=== PATIENT | male | born 1950 | race Caucasian/White ===

== ENCOUNTER 2016-05-14 14:32 | Outpatient (CLI) | payer MEDICARE, BC ==
[2016-05-14 15:30] LABS: #Basophils 0.1 thou/uL (0.0-0.2); #Eosinphils 0.1 thou/uL (0.0-0.7); #Lymphocytes 1.6 thou/uL (1.20-3.40); #Monocytes 0.5 thou/uL (0.11-0.59); #Neutrophils 6.1 thou/uL (1.40-6.50); %Basophils 1.1 % (0.0-1.0); %Eosinophils 0.8 % (0.0-10.0); Hematocrit 56.7 % (42.0-52.0); Mean Platelet Volume 9.3 fL (7.4-10.4); Red Blood Cell (RBC) Count 6.06 mill/uL (4.70-6.10); White Blood Cell (WBC) Count 8.4 thou/uL (4.8-10.8)
[2016-05-14 15:36] LABS: ALT (SGPT) 40 U/L (0-55); AST (SGOT) 23 U/L (5-34); Alkaline Phosphatase 96 U/L (40-150); Anion Gap 18 mmol/L (10-20); BUN (Urea Nitrogen) 18 mg/dL (8.4-25.7); Bilirubin, Total 0.5 mg/dL (0.2-1.2); Calc. Creatinine Clearance 0 mL/min (70-130); Calcium 9.9 mg/dL (7.8-10.44); Carbon Dioxide 26 mmol/L (23-31); Chloride 94 mmol/L (98-107); Estimated GFR-MDRD 41; Lipase 60 U/L (8-78); Protein, Total 7.9 g/dL (5.8-8.1)
[2016-05-14 18:21] LABS: Hemoglobin A1c 10.3 % (4.0-6.0)
== END 2016-05-14 14:33 | disposition home or self-care (01) ==
LOC: HPCALD 14:32
PROVIDERS: ATTEND Family Medicine
DX: R10.9 Unspecified abdominal pain (principal)
CPT/HCPCS: 36415; 80053; 83036; 83690; 85025

== ENCOUNTER 2016-05-16 07:55 | Outpatient (CLI) | payer MEDICARE, BC ==
--- NOTE | 2016-05-16 21:06 | CT ---
CT ABDOMEN AND PELVIS WITH CONTRAST: Date: 05/16/[address] of the abdomen and pelvis was performed for evaluation of umbilical and abdominal pain in a patient with a prior history of prostate cancer. There is also recent history of diarrhea. Axial s lices were acquired after giving both oral and IV contrast. The amount of IV contrast was restricted to 60 mL due to the patient's GFR. Isovue was used. Axial slices were acquired, then coronal recons tructions were done. There are no prior scans available for comparison. FINDINGS: The lung bases are clear. A small cyst or pneumatocele is seen in the left lower lobe and is of no c oncern. The liver is normal in size, but slightly low in density. There is probably some mild fatty infiltra tion. The gallbladder contained no obvious calcifications. The spleen and pancreas appear normal. Joe th adrenal glands seem hypertrophied, but the left adrenal is more bulbous and I believe it has at l east a 2.3 cm mass in it. The average CT density was 9-12 units, making it very likely that this is an adenoma. The kidneys show no solid mass or hydronephrosis. A few nonobstructing calculi are sugge sted on the left kidney. The aorta shows mild arteriosclerotic change with no aneurysm. The bowel is nondistended. There is no sign of obstruction. There is no maryjane-inflammatory streaking around bowel or thickening of joseph. The only area that was even questionably thickened would be the duodenum and proximal jejunum, and this is an equivocal finding at best. There were no signs of div erticulitis or colitis. No free air or free fluid seen. The patient does have a small fat-filled umbilical hernia immediately superior to the umbilical pino on. No bowel is within it and its neck is rather wide. CT of the pelvis showed no pelvic masses, fluid collections, or adenopathy. No lytic or blastic lesions were seen within the bony pelvis. The vertebra appear intact. There is d egenerative disc disease at several different levels, but is most prominent at L4-L5 and L5-S1. Face t arthritis at these levels is prominent as well. IMPRESSION: 1. Small fat-filled periumbilical hernia. 2. Mild diffuse fatty infiltration of the liver. 3. Nonobstructing left renal calculi. 4. No evidence of colitis or diverticulitis. POS: HOME
== END 2016-05-16 07:56 | disposition home or self-care (01) ==
LOC: BURCT 07:55
PROVIDERS: ATTEND Family Medicine
DX: R10.9 Unspecified abdominal pain (principal); N20.0 Calculus of kidney; K76.0 Fatty (change of) liver, not elsewhere classified
CPT/HCPCS: 74177

== ENCOUNTER 2019-04-13 09:27 | Outpatient (CLI) | payer MEDICARE ==
--- NOTE | 2019-04-13 16:53 | RAD ---
RIGHT KNEE FOUR VIEWS: 04/13/19 No acute fracture was seen. There is medial joint space narrowing and some very small osteophytes. Th ere does appear to be a small bony fragment in the central portion of the joint. This could be from o ld trauma or an old ligamentous injury. MRI would best show any internal derangement of the knee. IMPRESSION: Degenerative changes as noted with possible loose body. POS: HOME
== END 2019-04-13 09:28 | disposition home or self-care (01) ==
LOC: BURRAD 09:27
PROVIDERS: ATTEND Family Medicine
DX: M25.561 Pain in right knee (principal); M17.11 Unilateral primary osteoarthritis, right knee

== ENCOUNTER 2019-08-03 10:44 | Outpatient (CLI) | payer MEDICARE, OTHER ==
--- NOTE | 2019-08-03 15:55 | RAD ---
RIGHT HIP 2 VIEWS: DATE: 08/03/2019. FINDINGS: No fracture or area of bony destruction was seen. There are no substantial degenerative changes. Th e joint space is normal in width and the articular surfaces are smooth. The adjacent pubic ring appe ars intact. Femoral artery calcifications are evident. IMPRESSION: No acute findings. POS: HOME
--- NOTE | 2019-08-03 16:00 | RAD ---
LUMBAR SPINE 3 VIEWS: DATE: 08/03/2019. FINDINGS: No fracture or disk space narrowing was seen. Degenerated disks with vacuum phenomenon are seen at L 4-L5 and L5-S1. Anterior osteophytes are prominent at most lumbar levels. The aorta is calcified. There may be some minor sclerosis of the SI joints, but they are not seen symmetrically. Slight curv ature of the spine convex left could be positional. The hip joints were equal in width. IMPRESSION: Degenerative disk disease, especially in the lower lumbar levels. POS: HOME
== END 2019-08-03 10:45 | disposition home or self-care (01) ==
LOC: BURRAD 10:44
PROVIDERS: ATTEND Family Medicine
DX: M51.16 Intervertebral disc disorders with radiculopathy, lumbar region (principal); M51.37 Other intervertebral disc degeneration, lumbosacral region
CPT/HCPCS: 72100